=== PATIENT | male | born 1965 | race Caucasian/White ===

== ENCOUNTER 2020-02-28 11:17 | Emergency (ER) | payer MEDICARE ==
[~2020-02-28] VITALS: Ht 185.4 cm; Wt 109.1 kg
[2020-02-28] MEDS ORDERED: KETOROLAC TROMETHAMINE 30 MG/ML VIAL IM ONE (13:00)
[2020-02-28] MEDS ORDERED: TraMADol HCL 50 MG TABLET PO ONE (13:00)
[2020-02-28 14:35] VITALS: BP 138/96
== END 2020-02-28 14:50 | disposition home or self-care (01) ==
LOC: EMS 11:19
DX: S80.12XA Contusion of left lower leg, initial encounter (principal); I10 Essential (primary) hypertension; F17.210 Nicotine dependence, cigarettes, uncomplicated; F12.90 Cannabis use, unspecified, uncomplicated; X58.XXXA Exposure to other specified factors, initial encounter; Y93.89 Activity, other specified; Y92.89 Other specified places as the place of occurrence of the external cause; Y99.8 Other external cause status
CPT/HCPCS: 93971; 96372; 99284; 99406; J1885